=== PATIENT | male | born 1980 | race Caucasian/White ===

== ENCOUNTER 2018-08-19 17:17 | Emergency (ER) | payer MEDICARE ==
[~2018-08-19] VITALS: Ht 175.3 cm; Wt 86.2 kg
[2018-08-19 20:02] LABS: ANION GAP 10 mmol/L (7-16); BUN 12 mg/dL (7-18); CALCIUM 8.9 mg/dL (8.5-10.1); CHLORIDE 104 mmol/L (98-107); CO2 27 mmol/L (21-32); CREATININE 1.1 mg/dL (0.6-1.3); GLUCOSE 104 mg/dL (70-99); POTASSIUM 3.8 mmol/L (3.5-5.1); SODIUM 141 mmol/L (136-145)
[2018-08-19 20:11] LABS: ALBUMIN 3.2 g/dL (3.4-5.0); ALKALINE PHOSPHATASE 81 U/L (46-116); SGOT 16 U/L (15-37); SGPT 27 U/L (30-65); TOTAL BILIRUBIN 0.1 mg/dL (<0.1-1.0); TOTAL PROTEIN 6.9 g/dL (6.4-8.2); TROPONIN-I LEVEL <0.06 ng/mL (<0.06)
[2018-08-19 20:16] LABS: ABSOLUTE BASOPHILS 0.1 thou/uL (0.0-0.2); ABSOLUTE EOSINOPHILS 0.4 thou/uL (0.0-0.7); ABSOLUTE LYMPHOCYTES 1.9 thou/uL (0.8-5.3); ABSOLUTE NEUTROPHILS 6.3 thou/uL (1.6-8.1); BASOPHILS 0.8 %; EOSINOPHILS 3.9 %; HEMATOCRIT 43.4 % (42.0-52.0); HEMOGLOBIN 14.8 gm/dL (14.0-18.0); LYMPHOCYTES 19.5 %; MCH 30.3 pg (26.0-34.0); MCHC 34.1 g/dL (28.0-37.0); MCV 88.8 fL (80.0-100.0); MONOCYTES 10.3 %; MPV 7.7 fl. (7.2-11.1); NUCLEATED RBCS 0 /100WBC; PLATELET COUNT* 214 thou/uL (150-400); POLYS 65.5 %; RBC 4.88 mil/uL (4.50-6.00); RDW-CV 13.4 % (10.5-14.5); WBC 9.7 thou/uL (4.0-11.0)
[2018-08-19] MEDS ORDERED: TESSALON PERLE100 MG PO (20:18)
[2018-08-19] MEDS ORDERED: MEDROLDOSEPACK PO (20:18)
[2018-08-19] MEDS ORDERED: VENTOLIN HFA 1818 GM INH (20:18)
[2018-08-19 20:38] VITALS: BP 119/74
--- NOTE | 2018-08-20 11:39 | EKG ---
[place] [address] ELECTROCARDIOGRAM REPORT Name: BERTPATRICIA Room: [facility]#: [id number] Admission: 08/19/18 Attend Phys: Discharge: 08/19/18 Date of : 84 Report #: [id number] THIS REPORT FOR: //name// [facility] ED Test Date: 2018-08-19 Test Time: 19:18:26 Pat Name: PATRICIA NOEL Department: Room: Gender: Hearing Examiner: Maren SPEAR : 1980 Requested By: Brittni Garcia Order Number: [id number] MD: Keshawn Stapleton Measurements Intervals Annabella Rate: 96 P: 25 SC: 138 QRS: 39 QRSD: 78 T: 68 QT: 322 QTc: 407 Interpretive Statements Sinus rhythm No previous ECG available for comparison Electronically Signed On 08-20-2018 11:39:36 CDT by Keshawn Stapleton [email or web address] <ELECTRONICALLY SIGNED> By: Keshawn Stapleton MD, [facility] 08/20/18 1139 [id number] 191 Keshawn Stapleton MD, FACC /EPI
== END 2018-08-19 20:39 | disposition home or self-care (01) ==
LOC: M.ERS 17:17
PROVIDERS: Nurse Practitioner Family
DX: J40 Bronchitis, not specified as acute or chronic (principal); F32.9 Major depressive disorder, single episode, unspecified